=== PATIENT | female | born 2000 | race Caucasian/White ===

== ENCOUNTER 2020-12-04 09:59 | Emergency (ER) | payer OTHER, SELFPAY ==
[2020-12-04 10:10] VITALS: BP 132/68; PULSE 121; RESP 20; TEMP 37.6; O2SAT 99
--- NOTE | 2020-12-04 10:30 | ED.URI ---
HPI - URI/Sore Throat General Chief Complaint: Upper Respiratory Infection Stated Complaint: stuffy nose ear pain and cough Time Seen by Provider: 12/04/20 10:06 Source: patient and RN notes reviewed Mode of arrival: ambulatory Limitations: no limitations History of Present Illness HPI Narrative: Patient presents today with a 2-day history of left ear pain, congestion, cough. Denies fever, sore throat. Denies any sick exposures. Patient is 3 days . She has tried no medication for symptoms prior to arrival. She has not received the COVID-19 vaccine. She presents today with her 2-year-old child with similar symptoms. MD elicited complaint: cough and nasal congestion Related Data Home Medications Medication Instructions Recorded Confirmed No Home Medications 12/04/20 12/04/20 Allergies Allergy/AdvReac Type Severity Reaction Status Date / Time morphine Allergy Unknown Anaphylaxis Unverified 12/04/20 10:15 Review of Systems Review of Systems: CONSTITUTIONAL: Denies body aches, fever, chills, or sweats. EYES: Denies visual changes, redness, or discharge. ENT: Denies rhinorrhea, sore throat. + Congestion, left ear pain CARDIOVASCULAR: Denies chest pain, palpitations, or edema. RESPIRATORY: Denies dyspnea.+ Cough GASTROINTESTINAL: Denies abdominal pain, nausea, vomiting, or diarrhea. GENITOURINARY: Denies dysuria or hematuria. SKIN: Denies rash, itching, or wounds. MUSCULOSKELETAL: Denies back pain, joint pain, or myalgia. NEUROLOGIC: Denies headache, numbness, tingling, or weakness. PSYCH: Denies depression or anxiety. PMFSH Comments At time of signature, I have reviewed and agree with nursing past medical, surgical, social and family history unless otherwise noted. Please see nursing chart for further information. There is no relevant family history pertinent to the presenting complaint Exam Narrative: GENERAL: Well-appearing, well-nourished, and in no acute distress. HEAD: Normocephalic, atraumatic. EYES: EOMI. No redness or drainage. Conjunctivae normal. ENT: Mucous membranes pink and moist. Nares congested. No rhinorrhea. TMs normal bilaterally. Throat normal. Uvula midline. NECK: Normal AROM. Supple. No lymphadenopathy. CHEST: No respiratory distress. Clear to auscultation. HEART: Regular rate and rhythm. No murmur appreciated. Normal peripheral pulses. EXTREMITIES: Normal range of motion. No edema. SKIN: Warm, dry, no rash. Capillary refill normal. Normal skin turgor. NEURO: No focal deficits. Alert and oriented x3. Gait steady. PSYCH: Normal affect. No signs of depression or anxiety. Course Vital Signs Vital signs: Vital Signs Temperature 99.7 F H 12/04/20 10:10 Pulse Rate 121 H 12/04/20 10:10 Respiratory Rate 20 12/04/20 10:10 Blood Pressure 132/68 12/04/20 10:10 Pulse Oximetry 99 12/04/20 10:10 Temperature 99.7 F H 12/04/20 10:10 Pulse Rate 121 H 12/04/20 10:10 Respiratory Rate 20 12/04/20 10:10 Blood Pressure 132/68 12/04/20 10:10 Pulse Oximetry 99 12/04/20 10:10 Reviewed. Pt has been instructed to follow up with her PCP regarding her elevated blood pressure today. MDM - URI/Sore Throat Differential Diagnosis Differential diagnosis: Likely upper respiratory infection, otitis media, sinusitis, viral infection and bronchitis Critical Care Time Critical Care Time Critical Care Time: No Discharge Plan Discharge Clinical Impression: Upper respiratory infection Qualifiers: URI type: unspecified URI Qualified Code(s): J06.9 - Acute upper respiratory infection, unspecified Patient Disposition: Home, Self-Care Condition: Stable Instructions: Upper Respiratory Infection (DC) Additional Instructions: Your symptoms are likely due to a viral illness, which is not treated with antibiotics. Virus symptoms can last for up to 10-14 days. Take Tylenol or ibuprofen for pain or fever. Rest and stay hydrated. Follow up with your PCP in 7 day
== END 2020-12-04 10:44 | disposition home or self-care (01) ==
PROVIDERS: Emergency Provider Nurse Practitioner
DX: J06.9 Acute upper respiratory infection, unspecified (principal)
CPT/HCPCS: 99202; G0463

== ENCOUNTER 2022-05-02 17:55 | Emergency (ER) | payer OTHER, SELFPAY ==
--- NOTE | 2022-05-02 17:56 | ED.URI ---
HPI - URI/Sore Throat General Chief Complaint: Upper Respiratory Infection Stated Complaint: Ear Pain/Sore Throat Time Seen by Provider: 05/02/22 17:56 Source: patient Mode of arrival: ambulatory Limitations: no limitations History of Present Illness HPI Narrative: Roya is a 21-year-old female patient presenting to the clinic today with complaints of left ear pain and sore throat x1 day. She reports her sore throat started yesterday and the left ear pain started this morning. She does have a fever in the clinic today. She denies any cough or nasal congestion MD elicited complaint: sore throat and other ( ear pain) Related Data Allergies Allergy/AdvReac Type Severity Reaction Status Date / Time morphine Allergy Unknown Anaphylaxis Verified 05/02/22 18:09 Review of Systems Review of Systems: Pertinent positives per HPI. Patient denies any rash, headache, visual changes, dizziness, cough, shortness of breath, chest pain, palpitations, nausea, vomiting, diarrhea, constipation, abdominal pain, or any urinary issues. PMFSH Comments At the time of my signature, I reviewed and agree with the nursing past medical, surgical, social, and family history. There is no relevant family history pertinent to the patient complaint. Exam Narrative: General: Well-developed, well nourished, in no apparent distress Head: Normocephalic, atraumatic Eyes: Pupils equally round and reactive to light bilaterally, EOM intact, sclera and conjunctive clear, no discharge, lids normal Ears: TMs intact and clear, ear canals clear, no drainage, grossly hearing normal. Nose: Nares patent, no discharge, no inflammation, no sinus tenderness. Mouth: Oral pharynx without lesions or masses, good dentition, MMM. oropharynx red with bilateral tonsillar enlargement white exudate Neck: Supple, trachea midline, enlargement of anterior cervical nodes, no thyroid masses or goiter palpable. Cardio: Regular rate and rhythm, s1 and s2 normal, no murmur appreciated. Resp: Clear to auscultation bilaterally, no rhonchi, rales, wheezing or rubs Course Course Emergency Course: Portions of this record may have been created with voice recognition software. Level of Care: Express Care Visit Vital Signs Vital signs: Vital Signs Temperature 38.6 C H 05/02/22 18:09 Pulse Rate 95 05/02/22 18:09 Respiratory Rate 20 05/02/22 18:09 Blood Pressure 110/69 05/02/22 18:09 Pulse Oximetry 99 05/02/22 18:09 Oxygen Delivery Room Air 05/02/22 18:09 Temperature 38.6 C H 05/02/22 18:09 Pulse Rate 95 05/02/22 18:09 Respiratory Rate 20 05/02/22 18:09 Blood Pressure 110/69 05/02/22 18:09 Pulse Oximetry 99 05/02/22 18:09 Oxygen Delivery Room Air 05/02/22 18:09 Vital signs reviewed MDM - URI/Sore Throat MDM Narrative Medical decision making narrative: At the time of visit patient is resting comfortably on the exam table. I suspect the patient has strep pharyngitis. Centor criteria is 4-4 so I will go ahead and treat her for strep pharyngitis. Prescription for amoxicillin was sent to the pharmacy and supportive measures were discussed with the patient and she voiced understanding of discharge instructions and agrees to treatment plan. Differential Diagnosis Differential diagnosis: Likely upper respiratory infection, otitis media, sinusitis, viral infection, bronchitis, influenza, pharyngitis and other ( COVID) Discharge Plan Discharge Clinical Impression: Exudative pharyngitis Patient Disposition: Home, Self-Care Condition: Stable Instructions: Antibiotic Form, Pharyngitis (ED) Additional Instructions: Take prescription medications only as prescribed- amoxicillin Change your toothbrush in 24 hours after initiation antibiotics Increase fluids and stay well hydrated Tylenol/motrin for pain/fever Flonase and OTC antihistamines as directed Vicks vapor rub to open sinuses Sinus rinses for congestion Cepchristiane milian
[2022-05-02 18:09] VITALS: BP 110/69; PULSE 95; RESP 20; TEMP 38.6; O2SAT 99
== END 2022-05-02 18:26 | disposition home or self-care (01) ==
PROVIDERS: Emergency Provider Nurse Practitioner Family; PCP Family Medicine
DX: J02.9 Acute pharyngitis, unspecified (principal)
CPT/HCPCS: 96372; 99213; G0463

== ENCOUNTER 2024-01-19 08:32 | Emergency (ER) | payer OTHER, SELFPAY ==
[2024-01-19 08:40] VITALS: BP 113/71; PULSE 94; RESP 16; TEMP 36.6; O2SAT 98
--- NOTE | 2024-01-19 08:40 | ED.SKABFB ---
HPI - Skin/Abscess/Foreign Bdy General Chief complaint: Skin/Abscess/Foreign Body Stated complaint: Insect Bite Time Seen by Provider: 01/19/24 08:42 Source: patient, RN notes reviewed and old records reviewed Mode of arrival: ambulatory Limitations: no limitations History of Present Illness HPI narrative: 23-year-old female who presents to Express Care with complaints insect bite to her right outer thigh for the past 2 days with surrounding redness which has increased in size. Patient reports some burning pain to the area but denies any itching. Patient reports that she has been washing area with soap and water, has not had any purulent drainage from site and has not had any fevers. Patient reports past history of staph infection in her right knee when a child having to have I&D to area. MD complaint: insect bite/sting Onset (ago): day(s) (2) Location: RLE (right upper outer thigh) Severity scale (1-10): 3 Treatments prior to arrival: other (soap and water) Related Data Allergies Allergy/AdvReac Type Severity Reaction Status Date / Time morphine Allergy Unknown Anaphylaxis Verified 05/02/22 18:09 Review of Systems Review of Systems: CONSTITUTIONAL: Denies fever, chills, or sweats. CARDIOVASCULAR: Denies chest pain, palpitations, or edema. RESPIRATORY: Denies cough or dyspnea. GASTROINTESTINAL: Denies abdominal pain, nausea, vomiting SKIN: Reports redness and swelling with induration to insect bite on her right upper outer thigh, Denies purulent drainage,no fluctuation of tissue, no vesicles,burning type of discomfort for 2 day duration MUSCULOSKELETAL: Denies myalgia. NEUROLOGIC: Denies headache, numbness All systems reviewed & are unremarkable except as noted in HPI and below PMFSH Past Medical History Medical History (Updated 01/19/24 @ 09:09 by Yolanda Malik NP) Bronchitis Impetigo Staph infection knee when 4 years old had I/D Surgical History Surgical History (Updated 01/19/24 @ 08:48 by Yolanda Malik NP) History of appendectomy History of cholecystectomy Social History Social History (Updated 01/19/24 @ 09:09 by Yolanda Malik NP) Smoking status: Never smoker Alcohol intake: current Alcohol use details: rare social Substance use type: does not use Living arrangements: with family Gender identity (if verbalized by the patient): Female Comments At time of signature, agree with nursing past medical, surgical, social and family history. There is no relevant family history pertinent to the presenting complaint Exam Narrative: GENERAL: Well-appearing, well-nourished, and in no acute distress. HEAD: Normocephalic, atraumatic. EYES: PERRLA and EOMI. ENT: Nares clear, no rhinorrhea or epistaxis. Mucous membranes moist. NECK: Supple.no lymphadenopathy CHEST: Clear to auscultation. No respiratory distress. SAO2 98% on room area HEART: Regular rate and rhythm. No murmur heard. Normal peripheral pulses. ABDOMEN: Soft, nontender, nondistended, normal active bowel sounds. EXTREMITIES: Normal range of motion. No edema. SKIN: Warm, dry. Erythema, induration, tenderness, warmth to insect bite area with redness increasing in the past 2 days, scabbed center with some raised redness 1.5 cm in diameter and alternative education teacher redness around area up to 5cm in diameter, no purulent drainage or vesicle formation NEURO: No focal deficits. Alert and oriented x3. Course Course Emergency Course: Patient is aware of diagnosis, understands and agrees to treatment plan. Anticipatory guidance given. Patient agrees to follow-up as directed and is aware of reasons to seek care at the emergency department. Portions of this record may have been created with voice recognition software Level of Care: Express Care Visit Vital Signs Vital signs: Reviewed MDM - Skin/Abscess/Foreign Bdy MDM Narrative Medical decision making narrative: Does not appear at this time to be erythema multiforme, bullous, SJS, TEN; no
== END 2024-01-19 09:09 | disposition home or self-care (01) ==
PROVIDERS: Emergency Provider Registered Nurse
DX: L02.415 Cutaneous abscess of right lower limb (principal); S70.361A Insect bite (nonvenomous), right thigh, initial encounter; W57.XXXA Bitten or stung by nonvenomous insect and other nonvenomous arthropods, initial encounter; Z86.19 Personal history of other infectious and parasitic diseases
CPT/HCPCS: 99213; G0463

== ENCOUNTER 2025-01-24 11:58 | Emergency (ER) | payer OTHER, SELFPAY ==
--- OUTSIDE RECORDS SUMMARY | 2025-01-24 12:00 | XMS_ITS | Clinical Summary ---
Author Organization [facility] Address [address] [place] [address] Care Team Providers Care Agronomy Location Manager Name Role Phone Francisco Dsouza MD Primary Care Provider Allergies Active Allergy Reactions Criticality Noted Date Comments Latex Rash Medium 02/27/2020 Morphine Swelling,Anaphylaxis High 08/22/2015 Reaction: SWELLING Medications ondansetron (ZOFRAN) 8 mg tablet Take 8 mg by mouth every 8 (eight) hours as needed for nausea or vomiting Active ibuprofen (ADVIL,MOTRIN) 600 mg tabletIndicatio ns:Cramps,Pain Take 1 tablet (600 mg total) by mouth every 6 (six) hours as needed for pain 30 tablet 1 1 Active benzocaine-ment hoL (DERMOPLAST) 20-0.5 % aerosolIndicati ons:Minor Skin Wound Pain Apply 1 Application (1 spray total) topically as needed for other (perianal area for pain) 1 g 1 3 Active ibuprofen (ADVIL,MOTRIN) 600 mg tabletIndicatio ns:Pain Take 1 tablet (600 mg total) by mouth every 6 (six) hours as needed for pain 15 tablet 4 Active Active Problems Problem Noted Date Diagnosed Date with 39 completed weeks gestation 12/2022 Encounter for elective induction of labor 2020 Symptomatic cholelithiasis 03/15/2020 Assessment & Plan (03/15/2020 10:15 AM CREDIT SUPPORT SPECIALIST): The patient has symptomatic cholelithiasis. We will set her up for cholecystectomy. Risks and benefits have been explained to include bleeding, infection and post cholecystectomy diarrhea. Pre-admission testing will be sent in. COVID -19 testing will be ordered. care and examination Immunizations Immunization Administration Dates Next Due MMR 01/29/2023,11/29/2019(),11/05/19 19 Varicella 01/29/2023(Deferred: Patient Ref used) Surgical History Surgery Date Site/Laterality Comments APPENDECTOMY CHOLECYSTECTOMY Medical History Medical History Date Comments Urinary tract infection GERD (gastroesophageal reflux disease) Social History Tobacco Use Types Packs/Day Years Used Date Smoking Tobacco: Former Cigarettes Q uit: 11/21/2019 Smokeless Tobacco: Former Tobacco Cessation:Counseling Given: Not Answered Comments:Pt reports she only smoked cigarettes for a couple of months Alcohol Use Standard Drinks/Week Comments No 0 (1 standard drink = 0.6 oz pur e alcohol) Humiliation, Afraid, Rape, and Kick questionnair e Answer Date Recorded Within the last year, have y ou been afraid of your partner or ex-partner? No 01/29/2023 Within the last year, have y ou been humiliated or emotionally abused in other ways by your partner or ex-partner? No Within the last year, have y ou been kicked, hit, slapped, or otherwise physically hurt by your partner or ex-partner? No 01/29/2023 Within the last year, have y ou been raped or forced to have any kind of sexual activity by your partner or ex-partner? No 01/29/2023 Social Connection and Isolation Panel Answer Date Recorded In a typical week, how many times do you talk on the phone with family, friends, or neighbors? More than three times a week 01/29/2023 How often do you get togethe r with friends or relatives? More than three times a week 01/29/2023 How often do you attend chur ch or synagogue services? Never 01/29/2023 Do you belong to any clubs o r organizations such as judaism groups, unions, fraternal or athletic groups, or school groups? No 01/29/2023 How often do you attend meet ings of the clubs or organizations you belong to? Never 01/29/2023 Are you , , di vorced, , never , or living with a partner? Never 01/29/2023 AUDIT-C Answer Date Recorded Q1: How often do you have a drink containing alcohol? Never 01/29/2023 Q2: How many drinks containi ng alcohol do you have on a typical day when you are drinking? Patient does not drink Q3: How often do you have si x or more drinks on one occasion? Never 01/29/2023 Overall Financial Resource Strain (CARDIA) Answe r Date Recorded How hard is it for you to pa y for the very basics like food, housing, medical care, and heating? Not hard at all 01/29/2023 PHQ-2 Answer Date Recorded PHQ-2 Total Score 0 01/29/2023 [facility] - Occupational Stress Questionnaire Answer Date Recorded Do you feel stress - tense, restless, nervous, or anxious, or unable to sleep at night because your mind is troubled all the time - these days? Not at all 01/29/2023 Exercise Vital Sign Answer Date Recorde d On average, how many days pe r week do you engage in moderate to strenuous exercise (like a brisk walk)? 3 days 01/29/2023 On average, how many minutes do you engage in exercise at this level? 90 min 01/29/2023 Hunger Vital Sign Answer Date Recorded Within the past 12 months, y ou worried that your food would run out before you got the money to buy more. Never true 01/30/20 23 Within the past 12 months, t he food you bought just didn't last and you didn't have money to get more. Never true 01/29/2023 PRAPARE - Transportation Answer Date Re corded In the past 12 months, has l ack of transportation kept you from medical appointments or from getting medications? No 01/20 In the past 12 months, has l ack of transportation kept you from meetings, work, or from getting things needed for daily living? No 01/29/2023 Housing Stability Vital Sign Answer Dalton e Recorded In the last 12 months, was t here a time when you were not able to pay the mortgage or rent on time? No 01/29/2023 In the last 12 months, how many places have you lived? 1 01/29/2023 In the last 12 months, was t here a time when you did not have a steady place to sleep or slept in a residential (including now)? No 01/29/2023 Skillman Depression Scale Answer Date Recorded Skillman Depression Scale Total 2 01/29/2023 The thought of harming myself has occurred to me . Never 01/29/2023 Personal Safety Answer Date Recorded Have you ever been in or are you currently in a harmful physical or emotional relationship or is someone making you feel afraid or unsafe? Denies 05/17/2023 Comments Unknown Sex and Gender Information Value Date Recorded Sex Assigned at Not on file Legal Sex Female 5:19 PM CREDIT SUPPORT SPECIALIST Gender Identity Not on file Sexual Orientation Not on file Obstetrics History Para Term AB IAB SAB Ectopic Multiple Livin g Live Births 4 4 3 1 0 4 4 Date Outcome GA Total Labor Labor//3rd Weight Sex Type Anes PTL Princess A1 A5 Name Clin 2018 36w 3d 6h 50m 6h 30m/0h 15m/0h 05m 2.902 kg (6 lb 6.4 oz) F Vag-Sp ont Epidur al N Livin g 9 9 NAVNEET, GIRLM Jonathon Hudson MD Complications:None Delivery Location:[facility] ([facility]) 2019 Term 39w 2d 7h 29m 7h 15m/0h 07m/0h 07m 3.181 kg (7 lb 0.2 oz) F Vag-Sp ont Epidur al N Livin g 8 8 NAVNEET, GIRLM Mason Avalos MD Complications:None Delivery Location:[facility]) 2020 Term 39w 0d 2h 43m 2h 21m/0h 13m/0h 09m 3.26 kg (7 lb 3 oz) M Vag-Sp ont Epidur al N Livin g 9 9 NAVNEET, Brock Ray MD Complications:None Delivery Location:[facility]) 2022 Term 39w 2d 3h 15m 3h 01m/0h 12m/0h 02m 3.875 kg (8 lb 8.7 oz) M Vagina l Epidur al N Livin g 9 9 DIXIE ZAMUDIO, Brock draper MD Complications:Shoulder Dysto taylor Delivery Location:[facility]) Last Filed Vital Signs Vital Sign Reading Time Taken Comments Blood Pressure 101/59 05/17/2023 9:30 AM CREDIT SUPPORT SPECIALIST Pulse 70 05/17/2023 9:30 AM CREDIT SUPPORT SPECIALIST Temperature 36.8 C (98.2 F) 05/17/2023 7:57 AM CREDIT SUPPORT SPECIALIST Respiratory Rate 18 05/17/2023 9:30 AM CREDIT SUPPORT SPECIALIST Oxygen Saturation 97% 05/17/2023 9:30 AM CREDIT SUPPORT SPECIALIST Inhaled Oxygen Concentration - - Weight 77.1 kg (170 lb) 05/17/2023 7:57 AM CREDIT SUPPORT SPECIALIST Height 154.9 cm (5' 1) 05/17/2023 7:57 AM CREDIT SUPPORT SPECIALIST Body Mass Index 32.12 05/17/2023 7:57 AM CREDIT SUPPORT SPECIALIST Plan of Treatment Health Maintenance Due Date Last Done Comments Cervical Cancer Screening 1999 Hepatitis C Screening 1999 HPV Vaccines (1 - 3-dose series) 2014 Regular Well Visit/Exam 18-64 2017 Depression Screening 01/30/2024 01/29/2023, 01/16/2023, 01/16/2023, Additional history exists Influenza Vaccine (#1) 2024 02/24/2003 DTaP/Tdap/Td Vaccine (11 - Td or Tdap) 01/11/2033 01/11/2023, 11/14/2020, 11/10/2019, Additional history exists Hepatitis B Screening Completed 11/05/2000 , 1999, 1999 Varicella Vaccines Completed 07/24/2007, 06/21/2000 Pneumococcal vaccine <65 Aged Out No longer eligible based on patient's age to complete this topic Insurance [facility] Advance Directives For more information, please contact: [phone] * Full Code (Latest Code Status on File) Date Activated Date Inactivated Comments 01/28/2023 3:30 PM 01/30/2023 1:16 AM * Full Code Date Activated Date Inactivated Comments 01/28/2023 7:45 AM 01/28/2023 3:30 PM Full CPR in case of cardiopulmonary arrest * Full Code Date Activated Date Inactivated Comments 12/01/2020 1:56 PM 12/02/2020 9:09 PM * Full Code Date Activated Date Inactivated Comments 12/01/2020 6:29 AM 12/01/2020 1:56 PM Full CPR in case of cardiopulmonary arrest * Full Code Date Activated Date Inactivated Comments 11/27/2019 10:58 PM 11/30/2019 1:03 PM Full CPR in case of cardiopulmonary arrest Care Teams Agronomy Location Manager Relationship Specialty Start Date End Date Francisco Dsouza MD [address] [place] [address] [address] [facility] [address] [place] [address] PCP - General Obstetrics and Gynecology 10/20/24
[2025-01-24 12:02] VITALS: BP 111/71; PULSE 88; RESP 20; TEMP 37.1; O2SAT 100
--- NOTE | 2025-01-24 12:40 | ED_ITS ---
HPI - Skin/Abscess/Foreign Bdy General Chief complaint: Skin/Abscess/Foreign Body Stated complaint: Rash Time Seen by Provider: 01/24/25 12:25 Source: patient and RN notes reviewed Mode of arrival: ambulatory Limitations: no limitations History of Present Illness HPI narrative: 24-year-old female presents Express Care poorly rash to her face her almost 2 weeks now. Patient is set approximately 13 days ago she had her face threaded? in the daily later she developed red bumps to her face where she was threaded. Patient denies any burning sensation to the bones. Patient denies any fevers, drainage, upper respiratory symptoms, breathing problems, or other symptoms. Patient has been using antibacterial soap without any relief. Patient denies any issues with acne. Patient has not tried anything else to help with symptoms. Related Data Home Medications ?Medication ?Instructions ?Recorded ?Confirmed ?Last Taken ?Type norelgestromin 150 mcg-e.estradiol patch 01/24/25 Unk nown History 35 mcg/24 hr weekly transderm patch Allergies Allergy/AdvReac Type Severity Reaction Status Date / Time morphine Allergy Unknown Anaphylaxis Verified 01/24/25 12:06 Review of Systems Review of Systems: CONSTITUTIONAL: Denies fever, chills, or sweats. EYES: Denies visual changes, redness, or discharge. ENT: Denies rhinorrhea, congestion, sore throat, or otalgia. CARDIOVASCULAR: Denies chest pain, palpitations, or edema. RESPIRATORY: Denies cough or dyspnea. GASTROINTESTINAL: Denies abdominal pain, nausea, vomiting, or diarrhea. GENITOURINARY: Denies dysuria or hematuria. SKIN: Positive for rash. Negative for itching. MUSCULOSKELETAL: Denies back pain, joint pain, or myalgia. NEUROLOGIC: Denies headache, numbness, or weakness. PSYCHIATRIC: Denies anxiety or depression. All other systems reviewed are negative, except as documented in HPI. [facility] Past Medical History Medical History Impetigo Bronchitis Staph infection knee when 4 years old had I/D Surgical History Surgical History History of cholecystectomy History of appendectomy Social History Social History Smoking status: Never smoker Alcohol intake: current Alcohol use details: rare social Substance use type: does not use Living arrangements: with family Gender identity (if verbalized by the patient): Female Comments At the time of my signature, I reviewed and agree with the nursing past medical, surgical, social, and family history. There is no relevant family history pertinent to the patient complaint. Exam Narrative: GENERAL: This is a well-nourished, well-developed adult, in no apparent distress. They are non ill-appearing, nontoxic appearing. HEAD: normocephalic, atraumatic. EYES: Sclera clear/white. Conjunctiva normal. Vision is grossly intact. Extraocular movements intact EARS: External ears normal,Hearing grossly intact. NOSE: External nose normal THROAT: Mucous membranes moist, NECK: Neck supple, CARDIOVASCULAR: Regular rate and rhythm without murmurs, gallops, or rubs. RESPIRATORY: Respiratory rate normal, respiratory effort nonlabored, no respiratory distress SKIN: Face: Erythematous papular, pustular lesions scattered throughout the patient's forehead and side of her face. There less than 0.25 cm he each no area of fluctuance, no induration. No surrounding cellulitis. No exudate. NEURO: awake, alert, and oriented to person, place and time. There were no obvious focal neurologic abnormalities. EXTREMITIES: No joint tenderness, effusion, or edema noted. Course Course Emergency Course: Portions of this record may have been created with voice recognition software Level of Care: Express Care Visit Vital Signs Vital signs: Vital Signs Temperature 98.8 F 01/24/25 12:02 Pulse Rate 88 01/24/25 12:02 Respiratory Rate 20 01/24/25 12:02 Blood Pressure 111/71 01/24/25 12:02 Pulse Oximetry 100 01/24/25 12:02 Oxygen Delivery Room Air 01/24/25 12:02 Temperature 98.8 F 01/24/25 12:02 Pulse Rate 88 01/24/25 12:02 Respiratory Rate 20 01/24/25 12:02 Blood Pressure 111/71 01/24/25 12:02 Pulse Oximetry 100 01/24/25 12:02 Oxygen Delivery Room Air 01/24/25 12:02 Reviewed MDM - Skin/Abscess/Foreign Bdy MDM Narrative Medical decision making narrative: Likely patient has folliculitis from threading. Will treat with doxycycline. Also recommend use ccxm-bod-dcdiltk benzoyl peroxide topically twice a day. Patient denies any concerns for acne. Discussed physical exam findings. Advised supportive measures and signs/symptoms to go to the ER. Pt is appropriate for outpt treatment and f/u. Differential Diagnosis Differential diagnosis: Likely abscess of skin or subcutaneous tissue, cellulitis, contact dermatitis and other (Acne vulgaris, folliculitis ) Critical Care Time Critical Care Time Critical Care Time: No Discharge Plan Discharge Clinical Impression: Folliculitis Patient Disposition: Home Condition: Stable Instructions: Antibiotic Form, Folliculitis (ED) Additional Instructions: Apply benzoyl peroxide topically to the affected area twice a day until resolution. This is a fjtw-fef-rkckxuo cream. Take doxycycline as directed. Please wear sunscreen if you were going to be outside while taking doxycycline. Wash her face daily mild soap water or daily face wash. Follow-up PCP in 5-7 days if no improvement. If you developed worsening redness, swelling, pain, fevers, or any serious concerns please go to the ER immediately. Patient Language: Kiswahili Prescriptions: New doxycycline monohydrate 100 mg capsule 100 mg PO BID 7 Days Qty: 14 0RF No Action norelgestromin-ethin.estradiol 150-35 mcg/24 hr patch weekly Follow-up/Referrals: PHYSICIAN,ECCLESIASTICAL WORKER [Primary Care Provider, Internal Medicine] Time of Disposition: 12:37
== END 2025-01-24 12:40 | disposition home or self-care (01) ==
DX: L73.9 Follicular disorder, unspecified (principal)
CPT/HCPCS: 99213; G0463

== ENCOUNTER 2025-02-02 09:02 | Emergency (ER) | payer OTHER, SELFPAY ==
--- NOTE | ~2025-02-02 | XR_ITS ---
EXAMINATION: XR chest 2V, 02/02/2025 10:20 CDT HISTORY: cp COMPARISON: No comparisons available. Technique: 2 views obtained. Findings: The lungs are clear, no effusion. No pneumothorax. Heart is normal size. Mediastinal and hilar contours are within normal limits. Bony thorax no acute abnormality. Impression: No acute cardiopulmonary abnormality. Reviewed, dictated and finalized at location P. Impression: No acute cardiopulmonary abnormality.
[2025-02-02 09:10] VITALS: BP 112/62; PULSE 96; RESP 20; TEMP 36.5; O2SAT 100
--- NOTE | 2025-02-02 09:16 | ECG_ITS ---
Test Date: 2025-02-02 09:21:14 Measurements Intervals [place] Rate: 79 P: 43 DC: 145 QRS: 49 QRSD: 92 T: 54 QT: 383 QTc: 441 Interpretive Statements SINUS RHYTHM WITH SINUS ARRHYTHMIA MINIMAL Q WAVES- INFERIOR LEADS BASELINE ARTIFACT- II, III, AVR, AVL, AVF BORDERLINE ECG No previous ECG available for comparison Electronically Signed On 02-02-2025 11:35:37 CDT by Wally Figueroa D.O.
--- OUTSIDE RECORDS SUMMARY | 2025-02-02 09:50 | XMS_ITS | Clinical Summary ---
Author Organization [facility] Address [address] [place] [address] Phone Care Team Providers Care Waterworks Pump Station Operator Name Role Phone Fox Ruelas MD Unavailable [phone] Provider, None Primary Care Provider Unavailabl e Allergies Active Allergy Reactions Criticality Noted Date Comments Latex Rash 11/16/2023 Morphine Anaphylaxis High 08/22/2015 Medications No known medications Active Problems No known active problems Encounters Date Type Department Care Team Description 12/13/2024 11:50 AM CDT - 12/13/2024 4:23 PM CDT Emergency [facility] Emergency [address] [place] [id number] Gi Jennings, ALVARADO First trimester Discharge Disposition: Discharged to home or Selfcare 12/13/2024 Travel from Last 3 Months Social History Tobacco Use Types Packs/Day Years Used Date Smoking Tobacco: Passive Smo ke Exposure - Never Smoker Smokeless Tobacco: Never Alcohol Use Standard Drinks/Week Comments Yes 0 (1 standard drink = 0.6 oz pur e alcohol) rarely Comments No Sex and Gender Information Value Date Recorded Sex Assigned at Not on file Legal Sex Female 7:13 PM CDT Gender Identity Not on file Sexual Orientation Not on file Last Filed Vital Signs Vital Sign Reading Time Taken Comments Blood Pressure 122/70 12/13/2024 4:23 PM CDT Pulse 85 12/13/2024 4:23 PM CDT Temperature 36.4 C (97.6 F) 12/13/2024 4:23 PM CDT Respiratory Rate 16 12/13/2024 4:23 PM CDT Oxygen Saturation 100% 12/13/2024 4:23 PM CDT Inhaled Oxygen Concentration - - Weight 77.1 kg (170 lb) 12/13/2024 11:59 AM CDT Height 154.9 cm (5' 1) 12/13/2024 11:59 AM CDT Body Mass Index 32.12 12/13/2024 11:59 AM CDT Plan of Treatment Health Maintenance Due Date Last Done Comments Hepatitis C Virus (HCV) Screening 1999 Human Papillomavirus (HPV) Immunization (1 - 3-dose series) 2014 Pap Smear 2020 Influenza Immunization (#1) 2024 SARS-COV-2 Immunization ( - 2024- season) 2024 07/27/2021 Respiratory Syncytial Virus (RSV) Immunization (Adult) (1 - 1-dose 75+ series) 2074 Hepatitis B Immunization Completed 001, 1999, 1999 DTaP/Tdap/Td Immunization Discontinued 2022, 11/14/2020, 11/10/2019, Additional history exists TdaP Immunization Completed 01/11/2023, , 11/10/2019, Additional history exists Meningococcal Immunization (ACWY) Aged Out No longer eligible based on patient's age to complete this topic Pneumococcal Immunization Combined Aged Out No longer eligible based on patient's age to complete this topic Rotavirus Immunization Aged Out No lo nger eligible based on patient's age to complete this topic Procedures Procedure Name Priority Date/Time Associated Diagnosis Comments US 1ST PREG UTERUS COMP TRIMESTER W/ TRANSVAG Stat with Interpretation 12/13/2024 3:26 PM CDT CBC WITH AUTO DIFFERENTIAL STAT 12/13/2024 12:25 PM CDT TYPE & SCREEN (CROSSMATCH CONVERTIBLE) STAT 12/13/2024 12:25 PM CDT URINALYSIS REFLEX IF INDICATED BY ABNORMAL RESULTS STAT 12/13/2024 12:25 PM CDT HCG BETA SUBUNIT SERUM QUANT STAT 12/13/2024 12:25 PM CDT COMPLETE BLOOD COUNT (CBC) WITH DIFF STAT 12/13/2024 12:25 PM CDT CMP (COMPREHENSIVE METABOLIC PANEL) STAT 12/13/2024 12:25 PM CDT from Last 3 Months Results * US 1ST PREG UTERUS COMP TRIMESTER W/ TRANSVAG (12/13/2024 3:26 PM CDT) Anatomical Region Laterality Modality OB N/A Ultrasound 12/13/2024 3:42 PM CDT Impressions 12/13/2024 3:45 PM CDT IMPRESSION: Single intrauterine , gestational age of 5 weeks 6 days by this ultrasound. No sonographic findings to suggest an ectopic . Narrative 12/13/2024 3:45 PM CDT EXAM DESCRIPTION: US 1ST PREG UTERUS COMP TRIMESTER W/ TRANSVAG REASON FOR STUDY: LLQ abdominal pain, , r/o ectopic Beta-hC,358.5 TECHNIQUE: Transabdominal and transvaginal images acquired of the pelvis. COMPARISON: Pelvic ultrasound 01/07/2024 FINDINGS: Clinical gestational age: 5 weeks 5 days Clinical estimated Due Date: 08/10/2025 Intrauterine gestational sac: Present Yolk sac: Present Subchorionic bleed: Possible small subchorionic hemorrhage measuring 4.2 x 1.2 x 1.5 cm Placenta: Not identified Mean sac diameter: Not measured. [place]-rump length: 2.66 cm heart rate: heart rate is not measurable, likely due to early gestation. Gestational age by this ultrasound: 5 weeks 6 days CHRIS by this ultrasound: 08/09/2025 Uterus: The uterus is anteverted , measuring 10.2 x 9.9 x 6.2 cm. Right Ovary/Adnexa: The right ovary measures 2.5 x 1.7 x 1.6 cm. There is documentation of color Doppler flow in the right ovary. The right ovary appears unremarkable. No adnexal mass. Left Ovary/Adnexa: The left ovary measures 3.3 x 3.4 x 2.5 cm. There is documentation of color Doppler flow in the left ovary. The left ovary appears unremarkable. No adnexal mass. Free Fluid: None. Other Findings: None. THIS IS AN ELECTRONICALLY VERIFIED FINAL REPORT 12/13/2024 3:42 PM - Electronically signed by Andrews Kelley M.D. KR: ADARSH Report ID: [id number] Reading Location: [id number] Procedure Note Andrews Kelley MD - 12/13/2024 EXAM DESCRIPTION: US 1ST PREG UTERUS COMP TRIMESTER W/ TRANSVAG REASON FOR STUDY: LLQ abdominal pain, , r/o ectopic Beta-hC,358.5 TECHNIQUE: Transabdominal and transvaginal images acquired of the pelvis. COMPARISON: Pelvic ultrasound 01/07/2024 FINDINGS: Clinical gestational age: 5 weeks 5 days Clinical estimated Due Date: 08/10/2025 Intrauterine gestational sac: Present Yolk sac: Present Subchorionic bleed: Possible small subchorionic hemorrhage measuring 4.2 x 1.2 x 1.5 cm Placenta: Not identified Mean sac diameter: Not measured. [place]-rump length: 2.66 cm heart rate: heart rate is not measurable, likely due to early gestation. Gestational age by this ultrasound: 5 weeks 6 days CHRIS by this ultrasound: 08/09/2025 Uterus: The uterus is anteverted , measuring 10.2 x 9.9 x 6.2 cm. Right Ovary/Adnexa: The right ovary measures 2.5 x 1.7 x 1.6 cm. There is documentation of color Doppler flow in the right ovary. The right ovary appears unremarkable. No adnexal mass. Left Ovary/Adnexa: The left ovary measures 3.3 x 3.4 x 2.5 cm. There is documentation of color Doppler flow in the left ovary. The left ovary appears unremarkable. No adnexal mass. Free Fluid: None. Other Findings: None. THIS IS AN ELECTRONICALLY VERIFIED FINAL REPORT 12/13/2024 3:42 PM - Electronically signed by Andrews Kelley M.D. KR: KR Report ID: [id number] Reading Location: [id number] IMPRESSION: Single intrauterine , gestational age of 5 weeks 6 days by this ultrasound. No sonographic findings to suggest an ectopic . us Gi Joy Page PAC IMG US OB Final Result * (ABNORMAL) URINALYSIS REFLEX IF INDICATED BY ABNORMAL RESULTS (12/13/2024 12:25 PM CDT) SPECIFIC GRAVITY 1.010 1.003 - 1.030 12/13/2024 12:47 PM CDT [facility] URINE PH 7.0 5.0 - 9.0 12/13/2024 12:47 PM CDT [facility] WBC ESTERASE Negative Negative 12/13/2024 12:47 PM CDT [facility] NITRITE Negative Negative 12/13/2024 12:47 PM CDT [facility] PROTEIN, RANDOM URINE 15 mg/dL(A) Negative 12/13/2024 12:47 PM CDT [facility] URINE GLUCOSE, QUAL Negative Negative 12/13/2024 12:47 PM CDT [facility] URINE KETONES Negative Negative 12/13/2024 12:47 PM CDT [facility] UROBILINOGEN Normal Normal mg/dL 12/13/2024 12:47 PM CDT [facility] URINE BLOOD Negative Negative smitha/ul 12/13/2024 12:47 PM CDT [facility] URINALYSIS COLOR Yellow 12/14/19 12:47 PM CDT [facility] URINALYSIS CLARITY Clear 12/13/2024 12:47 PM CDT [facility] Urine URINE SPECIMEN OBTAINED BY CLEAN CATCH PROCEDURE / Unknown Non-Phlebotomy Collection / Unknown 12/13/2024 12:25 PM CDT 12/13/2024 12:34 PM CDT us Gi Joy Page PAC URINE ORDERABLES Final Resul t [facility] [address] [place] [address] * CBC with Auto Differential (12/13/2024 12:25 PM CDT) WBC 4.93 4.00 - 12.00 10(3)/mcL 12/13/2024 12:37 PM CDT [facility] RBC 4.45 3.80 - 5.30 10(6)/mcL 12/13/2024 12:37 PM CDT [facility] HEMOGLOBIN (HGB) 13.3 12.0 - 15.8 g/dL 12/13/2024 12:37 PM CDT [facility] HEMATOCRIT (HCT) 39.0 36.0 - 47.0 % 12/13/2024 12:37 PM CDT [facility] MCV 87.6 82.0 - 96.0 fL 12/13/2024 12:37 PM CDT [facility] MCH 29.9 26.0 - 34.0 pg 12/13/2024 12:37 PM CDT [facility] MCHC 34.1 31.0 - 36.0 g/dL 12/13/2024 12:37 PM CDT [facility] PLATELET COUNT 203 140 - 440 10(3)/mcL 12/13/2024 12:37 PM CDT [facility] RDW 12.4 11.8 - 15.5 % 12/13/2024 12:37 PM CDT [facility] MPV 10.0 9.7 - 12.4 fL 12/13/2024 12:37 PM CDT [facility] NEUTROPHILS 60.7 47.0 - 73.0 % 12/13/2024 12:37 PM CDT [facility] LYMPHOCYTES 30.2 18.0 - 42.0 % 12/13/2024 12:37 PM CDT [facility] MONOCYTES 6.3 4.0 - 12.0 % 12/13/2024 12:37 PM CDT [facility] EOSINOPHILS 2.0 0.0 - 5.0 % 12/13/2024 12:37 PM CDT [facility] BASOPHILS 0.4 0.0 - 1.0 % 12/13/2024 12:37 PM CDT [facility] IMMATURE GRANULOCYTE 0.4 0.0 - 0.4 % 12/13/2024 12:37 PM CDT [facility] ABSOLUTE NEUTROPHILS 2.99 1.60 - 7.70 10(3)/mcL 12/13/2024 12:37 PM CDT [facility] ABSOLUTE LYMPHOCYTES 1.49 1.30 - 3.20 10(3)/[facility] 12/13/2024 12:37 PM CDT [facility] ABSOLUTE MONOCYTES 0.31 0.20 - 1.00 10(3)/[facility] 12/13/2024 12:37 PM CDT [facility] ABSOLUTE EOSINOPHIL 0.10 0.00 - 0.40 10(3)/[facility] 12/13/2024 12:37 PM CDT [facility] ABSOLUTE BASOPHILS 0.02 0.00 - 0.10 10(3)/[facility] 12/13/2024 12:37 PM CDT [facility] ABSOLUTE IMMATURE GRANULOCYTE 0.02 0.00 - 0.03 10 (3) mcL. 12/13/2024 12:37 PM CDT [facility] NRBC PER 100 WBC 0 12/14/19 12:37 PM CDT [facility] Blood Venipuncture / Unknown 12/13/2024 12:25 PM CDT 12/13/2024 12:34 PM CDT Gi Joy Page PAC HEMATOLOGY ORDERABLES Final Result [facility] [address] [place] [address] * TYPE & SCREEN (CROSSMATCH CONVERTIBLE) (12/13/2024 12:25 PM CDT) ABO TYPING A 12/13/2024 1:27 PM CDT [facility] BLOOD [facility] RH Positive 12/13/2024 1:27 PM CDT [facility]LOOD [facility] ABSC Negative 12/13/2024 1:27 PM CDT [facility] Blood Venipuncture / Unknown 12/13/2024 12:25 PM CDT 12/13/2024 12:34 PM CDT Gi Joy Page PAC BLOOD BANK ORDERABLES Edited Result - Final [facility] BLOOD B[facility] [address] [place] [address] * (ABNORMAL) HCG Beta Subunit Serum Quant (12/13/2024 12:25 PM CDT) HCG BETA SUBUNIT, QUANT 31,358.46( H) 0.00 - 5.00 mIU/mL 12/13/2024 1:21 PM CDT [facility] Blood Venipuncture / Unknown 12/13/2024 12:25 PM CDT 12/13/2024 12:34 PM CDT Narrative [facility] - 12/13/2024 1:21 PM CDT HCG levels should be interpreted with consideration given to the patient's clinical condition. No currently available hCG test is approved by the FDA for use as a tumor marker. hCG results <5 mIU/mL are considered negative. Weeks post LMP hCG range (mIU/mL) 1 - 10 202 - 231,000 11 - 15 22,536 - 234,990 16 - 22 8,007 - 50,064 23 - 40 1,600 - 49,413 The concentration of hCG in maternal serum rises rapidly in early , hCG levels less than 25 mIU/mL do not exclude . A further sample should be tested after 48 hours if is suspected. Heterophilic antibodies present in the serum of some patients may cause a false positive result in the assay. Before making a diagnosis of malignancy based on elevated hCG, confirm results with a urine hCG. Gi Joy Page PAC CHEMISTRY ORDERABLES Final R esult [facility] [address] [place] [address] * (ABNORMAL) CMP (Comprehensive Metabolic Panel) (12/13/2024 12:25 PM CDT) SODIUM 139 136 - 145 mmol/L 12/13/2024 12:58 PM CDT [facility] POTASSIUM 3.8 3.5 - 5.1 mmol/L 12/13/2024 12:58 PM CDT [facility] CHLORIDE 106 98 - 107 mmol/L 12/13/2024 12:58 PM CDT [facility] CO2, VENOUS 23 22 - 30 mmol/L 12/13/2024 12:58 PM CDT [facility] ANION GAP 13.8 <18.0 mmol/L 12/13/2024 12:58 PM CDT [facility] GLUCOSE 100(H) 70 - 99 mg/dL 12/13/2024 12:58 PM CDT [facility] BUN 8 5 - 18 mg/dL 12/13/2024 12:58 PM CDT [facility] CREATININE, BLOOD 0.62 0.60 - 1.00 mg/dL 12/13/2024 12:58 PM CDT [facility] BUN/CREATININE RATIO 13 12 - 20 ratio 12/13/2024 12:58 PM CDT [facility] TOTAL PROTEIN 6.9 6.0 - 8.0 g/dL 12/13/2024 12:58 PM CDT [facility] ALBUMIN 4.0 3.5 - 5.0 g/dL 12/13/2024 12:58 PM CDT [facility] A/G RATIO 1.4 1.0 - 2.2 12/13/2024 12:58 PM CDT [facility] CALCIUM 9.1 8.7 - 10.5 mg/dL 12/13/2024 12:58 PM CDT [facility] T BILI 0.3 0.2 - 1.2 mg/dL 12/13/2024 12:58 PM CDT [facility] SGOT (AST) 16 <43 U/L 12/13/2024 12:58 PM CDT [facility] SGPT (ALT) 22 <56 U/L 12/13/2024 12:58 PM CDT [facility] ALKALINE PHOSPHATASE 80 40 - 150 U/L 12/13/2024 12:58 PM CDT [facility] GFR, ESTIMATED >60 >=60 12/13/2024 12:58 PM CDT [facility] Comment: Creatinine Clearance is the preferred criteria for selecting drug dose adjustments in renally impaired patients. The GFR is provided as additional pertinent clinical information. GFR is reported in mL/min/1.73 sq m. Calculation based on the 2020 Chronic Kidney Disease Epidemiology Collaboration (CKD-EPI) equation refit without adjustment for race. GFR, EST. >60 >=60 025 12:58 PM CDT [facility] Comment: Creatinine Clearance is the preferred criteria for selecting drug dose adjustments in renally impaired patients. The GFR is provided as additional pertinent clinical information. GFR is reported in mL/min/1.73 sq m. Calculation based on the 2009 Chronic Kidney Disease Epidemiology Collaboration (CKD-EPI). GFR, EST. NONAFRICAN >60 >=60 12/13/2024 12:58 PM CDT [facility] Comment: Creatinine Clearance is the preferred criteria for selecting drug dose adjustments in renally impaired patients. The GFR is provided as additional pertinent clinical information. GFR is reported in mL/min/1.73 sq m. Calculation based on the 2009 Chronic Kidney Disease Epidemiology Collaboration (CKD-EPI). Blood Venipuncture / Unknown 12/13/2024 12:25 PM CDT 12/13/2024 12:34 PM CDT us Gi Joy Page PAC CHEMISTRY ORDERABLES Final R esult [facility] [address] [place] [address] from Last 3 Months Insurance MEDICAID [place] Care Teams Waterworks Pump Station Operator Relationship Specialty Start Date End Date Provider, None [place] PCP - General 01/13/17 Fox Ruelas MD General Surgery 08/31/15
--- OUTSIDE RECORDS SUMMARY | 2025-02-02 09:50 | XMS_ITS | Clinical Summary ---
Author Organization [facility] Address [address] [place] [address] Care Team Providers Care Real Estate Rental Agent Name Role Phone Francisco Dsouza MD Primary [...] 03/15/2020 Assessment & Plan (03/15/2020 10:15 AM HUMAN RESOURCES VICE PRESIDENT): The patient has symptomatic cholelithiasis. We will [...] often do you attend chur ch or zoroastrianism services? Never 01/29/2023 Do you belong to any clubs o r organizations such as rastafari groups, unions, fraternal or athletic groups, or [...] Date Recorded PHQ-2 Total Score 0 01/29/2023 [facility] - Occupational Stress [...] place to sleep or slept in a long-term (including now)? No 01/29/2023 [place] Depression Scale Answer Date Recorded [place] Depression Scale Total 2 01/29/2023 The thought [...] on file Legal Sex Female 5:19 PM HUMAN RESOURCES VICE PRESIDENT Gender Identity Not on file Sexual Orientation [...] Comments Blood Pressure 101/59 05/17/2023 9:30 AM HUMAN RESOURCES VICE PRESIDENT Pulse 70 05/17/2023 9:30 AM HUMAN RESOURCES VICE PRESIDENT Temperature 36.8 C (98.2 F) 05/17/2023 7:57 AM HUMAN RESOURCES VICE PRESIDENT Respiratory Rate 18 05/17/2023 9:30 AM HUMAN RESOURCES VICE PRESIDENT Oxygen Saturation 97% 05/17/2023 9:30 AM HUMAN RESOURCES VICE PRESIDENT Inhaled Oxygen Concentration - - Weight 77.1 kg (170 lb) 05/17/2023 7:57 AM HUMAN RESOURCES VICE PRESIDENT Height 154.9 cm (5' 1) 05/17/2023 7:57 AM HUMAN RESOURCES VICE PRESIDENT Body Mass Index 32.12 05/17/2023 7:57 AM HUMAN RESOURCES VICE PRESIDENT Plan of Treatment Health Maintenance Due Date [...] patient's age to complete this topic Insurance [facility] [place] [facility] Advance Directives For more information, please contact: [phone] * Full Code (Latest Code Status on [...] in case of cardiopulmonary arrest Care Teams Real Estate Rental Agent Relationship Specialty Start Date End Date Francisco Dsouza MD [address] [place] [address] [address] [facility] [address] [place] [address] PCP - General Obstetrics and Gynecology 10/20/24
--- NOTE | 2025-02-02 10:24 | ED_ITS ---
HPI - Chest Pain General Chief Complaint: Chest Pain Stated Complaint: sob/chest pain Time Seen by Provider: 02/02/25 10:10 Source: patient and RN notes reviewed Mode of arrival: ambulatory Limitations: no limitations History of Present Illness HPI narrative: 24-year-old female presents Express Care complaining chest pain for last 3 days. Patient says the pain comes on randomly reports that on the left side of her chest reports to stabbing and pinching sensation. Patient says it is reproducible to palpation and worse with the breath. Patient denies any shortness of breath, breathing problems, nausea, vomiting, jaw pain, left arm pain, numbness, tingling, dizziness, lightheadedness, chest pain with exertion, abdominal pain, or any other symptoms. Patient denies any history of hypertension, hyperlipidemia, diabetes. Patient denies any smoking history. Patient says she does use control. Patient denies any upper respiratory symptoms, cough, fevers, or any other symptoms. Related Data Home Medications ?Medication ?Instructions ?Recorded ?Confirmed ?Last Taken ?Type norelgestromin 150 mcg-e.estradiol patch 01/24/25 Unk nown History 35 mcg/24 hr weekly transderm patch Allergies Allergy/AdvReac Type Severity Reaction Status Date / Time morphine Allergy Unknown Anaphylaxis Verified 01/24/25 12:06 Review of Systems Review of Systems: CONSTITUTIONAL: Denies fever, chills, or sweats. EYES: Denies visual changes, redness, or discharge. ENT: Denies rhinorrhea, congestion, sore throat, or otalgia. CARDIOVASCULAR: Positive for chest pain. Negative for chest pain with exertion, dizziness, lightheadedness, orthopnea, Palpitations, or edema. RESPIRATORY: Denies cough, wheezing, difficulty breathing, or dyspnea. GASTROINTESTINAL: Denies abdominal pain, nausea, vomiting, or diarrhea. GENITOURINARY: Denies dysuria or hematuria. SKIN: Denies rash or itching. MUSCULOSKELETAL: Denies back pain, joint pain, or myalgia. NEUROLOGIC: Denies headache, numbness, or weakness. PSYCHIATRIC: Denies anxiety or depression. All other systems reviewed are negative, except as documented in HPI. [facility] Past Medical History Medical History Impetigo Bronchitis Staph infection knee when 4 years old had I/D Surgical History Surgical History History of cholecystectomy History of appendectomy Social History Social History Smoking status: Never smoker Alcohol intake: current Alcohol use details: rare social Substance use type: does not use Living arrangements: with family Gender identity (if verbalized by the patient): Female Comments At the time of my signature, I reviewed and agree with the nursing past medical, surgical, social, and family history. There is no relevant family history pertinent to the patient complaint. Exam Narrative: GENERAL: This is a well-nourished, well-developed adult, in no apparent distress. They are non ill-appearing, nontoxic appearing. HEAD: normocephalic, atraumatic. EYES: Sclera clear/white. Conjunctiva normal. Vision is grossly intact. Extraocular movements intact EARS: External ears normal, auditory canals clear and without drainage, TMs normal without perforation. Hearing grossly intact. NOSE: External nose normal with no obvious nasal discharge, nasal turbinates without redness, no rhinorrhea. THROAT: Mucous membranes moist, posterior pharynx clear, without erythema or swelling. Uvula midline. NECK: Neck supple, non-tender without lymphadenopathy, masses or thyromegaly. CARDIOVASCULAR: Regular rate and rhythm without murmurs, gallops, or rubs. CHEST WALL: Tenderness to palpation to left upper chest. No paradoxical movements. No flail chest segments. No bruising or obvious injury. RESPIRATORY: Clear to auscultation. Breath sounds equal bilaterally. No wheezes, rales, or rhonchi. SKIN: warm, Dry, intact with no suspicious lesions or rash, good texture and turgor. NEURO: awake, alert, and oriented to person, place and time. There were no obvious focal neurologic abnormalities. EXTREMITIES: No joint tenderness, effusion, or edema noted. BACK: Nontender without deformity. No CVA tenderness. Course Course Emergency Course: Portions of this record may have been created with voice recognition software Level of Care: Express Care Visit Vital Signs Vital signs: Vital Signs Temperature 97.7 F 02/02/25 09:10 Pulse Rate 96 02/02/25 09:10 Respiratory Rate 20 02/02/25 09:10 Blood Pressure 112/62 02/02/25 09:10 Pulse Oximetry 100 02/02/25 09:10 Oxygen Delivery Room Air 02/02/25 09:10 Temperature 97.7 F 02/02/25 09:10 Pulse Rate 96 02/02/25 09:10 Respiratory Rate 20 02/02/25 09:10 Blood Pressure 112/62 02/02/25 09:10 Pulse Oximetry 100 02/02/25 09:10 Oxygen Delivery Room Air 02/02/25 09:10 Reviewed MDM - Chest Pain MDM Narrative Medical decision making narrative: EKG sinus rhythm without ischemic findings. Chest pain appears atypical in presentation. Patient has no cardiac risk factors. Patient nonsmoker. [place] heart score 0. Low suspicion for ACS. Chest pain is reproducible to palpation. Patient is stable for outpatient follow-up. Patient says she consumes a lot of caffeine. Patient denies any recent travels, no major surgeries in the last 3 months, no history of blood clots. Offered patient ER transfer given symptoms pain and being on control and she says she will follow-up with her PCP. Patient said she will decrease her caffeine intake. Strict ER precautions discussed with patient patient if her chest pain worsens or she developed breathing problems, shortness of breath, dizziness, lightheadedness, nausea, vomiting, jaw pain, left arm pain, or any serious concerns to go to the ER immediately. Discussed physical exam findings. Advised supportive measures and signs/symptoms to go to the ER. Pt is appropriate for outpt treatment and f/u. Differential Diagnosis Differential diagnosis: Likely pneumothorax, atypical chest pain, chest pain and other Imaging Data Radiologist's impression: ITS Impressions Chest X-Ray 02/02/25 10:41 Impression: No acute cardiopulmonary abnormality. ECG Data EKG #1: Attestation: I personally reviewed and interpreted this ECG as follows: ECG completion date: 02/02/25 ECG completion time: 09:21 Prior ECG tracings: not available for review EKG Interpretation: normal rate, sinus rhythm, no ectopy, normal QRS, normal QT and NL axis Critical Care Time Critical Care Time Critical Care Time: No Discharge Plan Discharge Clinical Impression: Atypical chest pain Patient Disposition: Home Condition: Stable Instructions: Chest Pain (ED) Additional Instructions: Your EKG is normal sinus rhythm. Your chest x-ray is negative for any acute cardiopulmonary findings. Follow-up with your PCP in 3-5 days. He developed worsening chest pain, shortness of breath, breathing problems, nausea vomiting, headaches, dizziness, lightheadedness, left arm pain, jaw pain, or any serious concerns please go to the ER immediately. Patient Language: Indian Prescriptions: No Action norelgestromin-ethin.estradiol 150-35 mcg/24 hr patch weekly doxycycline monohydrate 100 mg capsule 100 mg PO BID 7 Days Qty: 14 0RF Follow-up/Referrals: PHYSICIAN,SPINNER TENDER [Primary Care Provider, Internal Medicine] Time of Disposition: 10:58
== END 2025-02-02 11:03 | disposition home or self-care (01) ==
DX: R07.89 Other chest pain (principal)
CPT/HCPCS: 71046; 93005; 99213; G0463